=== PATIENT | female | born 1980 | race African-American/Black ===

== ENCOUNTER 2017-03-23 14:29 | Emergency (ER) | payer OTHER ==
[~2017-03-23] VITALS: Ht 170.2 cm; Wt 108.9 kg
[2017-03-23 15:10] VITALS: BP 122/73
--- NOTE | 2017-03-23 17:01 | ED GENERAL ADULT ---
History of Present Illness General Chief Complaint: General Adult Stated Complaint: "SYMPTOMS" Source: patient Exam Limitations: no limitations Vital Signs & Intake/Output Vital Signs & Intake/Output Vital Signs Date Time Temp Pulse Resp B/P B/P Pulse O2 O2 Flow FiO2 Mean Ox Delivery Rate 03/23 1835 97 03/23 1735 100 03/23 1510 97.2 75 18 122/73 96 Room Air Allergies Coded Allergies: NO KNOWN ALLERGIES (09/05/13) Triage Note: PRESNTS TO THE ED FOR EVALUATION OF PRODUCTIVE COUGH X 24 HRS. DENIED FEVER. Triage Nurses Notes Reviewed? yes : No Patient currently breastfeeds: No HPI: 37-year-old female with a history of ADHD presenting with cough productive of yellow sputum and malaise since yesterday. Endorses chest tightness, no chest pain or shortness of breath. Denies fevers, URI symptoms, sore throat. (CLAUDIA RANGEL,MARVIN) Reconcile Medications Albuterol Sulfate (Proair Hfa) 90 MCG HFA.AER.AD 2 PUF INH Q4-6 PRN PRN chest tightness Cholecalciferol (Vitamin D3) (Vitamin D) 5,000 UNIT TABLET 1 TAB PO EOD SUPPLEMENT (Reported) Dextroamphetamine/Amphetamine (Dextroamp-Amphetamin 10 MG Tab) 10 MG TABLET 1 TAB PO BID ADHD/BINGE EATING DISORDER (Reported) Multivit,Ca,Iron,Min/FA/Mdu759 (One Daily Healthy Weight Tab) 200 MG-18 MG-400 MCG TABLET 1 TAB PO DAILY SUPPLEMENT (Reported) Tyrosine (L-Tyrosine) 500 MG CAPSULE 1 CAP PO DAILY SUPPLEMENT (Reported) (SLAVA SWAIN,IMNH) Past History Travel History Traveled to [place] past 21 day No Medical History Any Pertinent Medical History? see below for history Psychiatric: ADHD Surgical History Surgical History: non-contributory Psychosocial History What is your primary language Welsh Tobacco Use: Quit >30 days ago Family History Hx Contributory? No (CLAUDIA RANGEL,MARVIN) Review of Systems Review of Systems Constitutional: Reports: malaise. Denies: chills, fever, weakness. EENTM: Denies: ear pain, nasal congestion, throat pain. Respiratory: Reports: cough, sputum production. Denies: short of breath, wheezing. Cardiovascular: Denies: chest pain, palpitations. GI: Reports: no symptoms. Musculoskeletal: Reports: no symptoms. Skin: Denies: rash. (MARVIN TAYLOR PA-C) Physical Exam Physical Exam General Appearance: well developed/nourished, no apparent distress, comfortable Head: atraumatic Ears, Nose, Throat: normal ENT inspection Neck: normal inspection, supple, no LAD Respiratory: mild end expiratory wheezes bilaterally Cardiovascular: regular rate/rhythm Gastrointestinal: soft, non-tender Skin: intact Core Measures ACS in differential dx? No CVA/TIA Diagnosis: No Severe Sepsis Present: No Septic Shock Present: No (MARVIN TAYLOR PA-C) Progress Differential Diagnoses I considered the following diagnoses in my evaluation of the patient: [Viral URI versus bronchitis versus pneumonia] Plan of Care: Orders Procedure Date/time Status URINE 03/23 153 Complete Laboratory Tests 03/23/17 1722: Urine Test NEGATIVE Chest x-ray negative for pneumonia. Wheezes resolved after albuterol nebs. Will discharge home with albuterol inhaler as needed for chest tightness. Instructed to follow-up with primary care provider in 2 days. (MARVIN TAYLOR PA-C) Initial ED EKG: none (MARVIN TAYLOR PA-C) Departure Departure Disposition: HOME OR SELF CARE Condition: Stable Clinical Impression Primary Impression: Cough Secondary Impressions: Sputum production Referrals: Augustin LIU MD (PCP/Family) Additional Instructions: Use albuterol inhaler every 4-6 hours as needed for chest tightness. Follow-up with your primary care provider in the next 2 days for reevaluation. Return to the ED for any new or worsening symptoms. Departure Forms: Customer Survey General Discharge Information (MARVIN TAYLOR PA-C) Departure Prescriptions: Current Visit Scripts Albuterol Sulfate (Proair Hfa) 2 PUF INH Q4-6 PRN PRN chest tightness #1 INHAL PA/GENETIC COUNSELOR Co-Sign Statement Statement: ED Attending supervision documentation- [] I saw and evaluated the patient. I have also reviewed all the pertinent lab results and diagnostic results. I agree with the findings and the plan of care as documented in the PA's/GENETIC COUNSELOR's documentation. [X] I have reviewed the ED Record and agree with the PA's/GENETIC COUNSELOR's documentation. [] Additions or exceptions (if any) to the PAs/GENETIC COUNSELOR's note and plan are summarized below: [] (SLAVA SWAIN,MINH) Critical Care Note Critical Care Note Critical Care Time: non-applicable (CLAUDIA RANGEL,MARVIN)
[2017-03-23] MEDS ORDERED: DEXTROAMP-AMPHE10 MG PO (17:02)
[2017-03-23] MEDS ORDERED: ONE DAILY HEAL1 EACH PO (17:03)
[2017-03-23] MEDS ORDERED: VITAMIN D5000 UNIT PO (17:03)
[2017-03-23] MEDS ORDERED: TYROSINE PO (17:04)
--- NOTE | 2017-03-23 18:17 | RADIOLOGY REPORT ---
EXAMINATION: XR CHEST CLINICAL INFORMATION: Productive cough COMPARISON: None TECHNIQUE: 2 views of the chest were obtained. FINDINGS: The lungs are well expanded. There is no focal consolidation, edema, or effusion. No pneumothorax. The cardiomediastinal silhouette is within normal limits. No acute osseous abnormality. IMPRESSION: No acute pulmonary findings.
[2017-03-23] MEDS ORDERED: PROAIR HFA8.5 GM INH (18:32)
== END 2017-03-23 18:30 ==
LOC: ERH 14:29
DX: R05 Cough (principal); R07.89 Other chest pain
CPT/HCPCS: 1263; 1395; 81025